=== PATIENT | female | born 1955 | race Caucasian/White ===

== ENCOUNTER 2019-04-17 21:05 | Emergency (ER) | payer OTHER, SELFPAY ==
[2019-04-17 21:36] VITALS: BP 179/87; PULSE 57; RESP 15; TEMP 36.3; O2SAT 99; BMI 29.2
[2019-04-17 21:41] VITALS: BMI 29.2
[2019-04-17 23:30] VITALS: BP 154/72; PULSE 58; RESP 16
--- NOTE | 2019-04-17 23:57 | ED_ITS ---
HPI - Wound/Laceration General Chief Complaint: Wound/Laceration Stated Complaint: CUT THUMB Time Seen by Provider: 04/17/19 21:06 Source: patient Mode of arrival: Ambulatory Limitations: no limitations History of Present Illness HPI narrative: 63-year-old female nonsmoker with noncontributory medical history presents with a chief complaint of a deep laceration to her left thumb suffered while working tonight. She was caring a cutting board and had a sharp knife sitting on it and she bumped into the door jam causing the knife to lacerate her thumb. There was significant bleeding on site and since then she has decreased ability to flex her left thumb. She denies any numbness, tingling or weakness. Her tetanus is not current and will need to be updated. Onset (ago): hour(s) Place: work Patient tetanus UTD: No Context: accidental Associated symptoms: pain and unable to move injured part Related Data Previous Rx's Medication Instructions Recorded cephalexin [Keflex] 500 mg PO QID 7 Days #28 cap 04/17/19 Allergies Allergy/AdvReac Type Severity Reaction Status Date / Time adhesive [ADHESIVE] Allergy Severe ITCH Unverified 10/30/17 11:58 codeine [CODEINE] Allergy Unknown NAUSEA Unverified 10/30/17 11:58 sulfamethoxazole AdvReac Unknown NAUSEA/VOMI Unverified 10/30/17 11:58 [From ] TING trimethoprim [From ] AdvReac Unknown NAUSEA/VOMI Unverified 10/30/17 11:58 TING Review of Systems Constitutional Constitutional: Denies chills, Denies fatigue, Denies fever(s), Denies frequent falls, Denies lethargy and Denies weakness Eyes Eyes: Denies change in vision, Denies eye discharge, Denies irritation and Denies loss of vision ENT Ears, Nose, Mouth, and Throat: Denies change in voice, Denies dizziness, Denies neck pain, Denies sore throat and Denies throat swelling Cardiovascular Cardiovascular: Denies chest pain, Denies irregular heart rhythm, Denies lightheadedness, Denies palpitations, Denies dyspnea, Denies dyspnea on exertion and Denies orthopnea Respiratory Respiratory: Denies cough, Denies dyspnea, Denies dyspnea on exertion and Denies wheezing Gastrointestinal Gastrointestinal: Denies abdominal pain, Denies change in bowel habits, Denies diarrhea, Denies nausea and Denies vomiting Genitourinary Genitourinary: Denies hematuria, Denies flank pain, Denies urinary incontinence and Denies urinary urgency Musculoskeletal Musculoskeletal: Denies back pain, Reports limited range of motion, Denies mus senthil weakness, Denies neck pain, Denies numbness and Denies tingling Integumentary/Breasts Skin/Breast: Denies pruritus, Denies erythema, Denies rash and Reports wounds Neurologic Neurologic: Denies behavioral changes, Denies confusion, Denies dizziness, Denies frequent falls, Denies loss of vision, Denies numbness, Denies tingling and Denies weakness Psychiatric Psychiatric: Denies anxiety, Denies behavioral changes, Denies confusion, Denies depression, Denies homicidal ideation and Denies suicidal ideation Endocrine Endocrine: Denies fatigue, Denies flushing and Denies palpitations Hematologic/Lymphatic Hematologic/Lymphatic: Denies easy bruising Allergic/Immunologic Allergic/Immunologic: Denies urticaria, Denies throat swelling and Denies wheezing PFSH Social History Smoking Status: Never smoker Social History Smoking Status: Never smoker Exam Narrative Exam Narrative: GEN: AOx3 and in mild distress EYES: Pupils are equal, round, and reactive to light and accommodation. Extraoccular muscles are intact bilaterally. There is no subconjunctival hemorrhage or exudate. CHEST: Lungs are clear to auscultation bilaterally and free of wheezes, rales, or rhonchi. Heart rate is regular rhythm, there are no murmurs, clicks, rubs, or gallops. There is no chest wall tenderness. ABD: Abdomen is soft and nontender. There is no guarding or rebound. Bowel sounds are normal in all 4 quadrants. There is no mass or organomegaly. EXT: Small active arterial bleeding noted at the laceration. 1.5 cm deep laceration on the flexor surface of left thumb overlying the interphalangeal joint. Bleeding quickly controlled, sensation intact, cap refill intact. Injury viewed in a bloodless field and full tendon laceration noted of the flexor tendon. SKIN: Warm, pink, and dry. No erythema or rash Initial Vital Signs Initial Vital Signs: Vital Signs Temperature 97.4 F L 04/17/19 21:36 Pulse Rate 57 L 04/17/19 21:36 Respiratory Rate 15 09/27/19 21:36 Blood Pressure 179/87 H 04/17/19 21:36 Pulse Oximetry 99 04/17/19 21:36 Procedures Laceration Repair Laceration 1: Side (If applicable): left Size (cm): 1.5 Description: linear Depth: involves tendon Local Anesthetic: lidocaine 1% and with bicarb Amount of anesthesia used (mL): 4 Pre-repair: wound explored and irrigated extensively Skin layer closed with: nylon Size (cm): 5-0 Number of sutures: 5 Technique: simple, interrupted Orthopedic Splinting/Casting Injury #1: Side: left Upper Extremity Immobilizer: thumb spica Post splinting neuro exam: intact Post splinting vascular exam: intact Placed by: Nursing Course Orders Ordered: Discontinued Medications Cefazolin Sodium (Keflex 250 Mg Prepack) 1 bottle MISC SEEINSTR ONE Stop: 04/18/19 00:01 Last Admin: 04/18/19 00:07 Dose: 1 bottle Documented by: KENL Diphtheria/Tetanus/Acell Pertussis (Adacel) 0.5 ml IM .ONCE ONE Stop: 04/18/19 00:03 Last Admin: 04/18/19 00:08 Dose: 0.5 ml Documented by: KENL Lidocaine/Sodium Bicarbonate (Buffered Lidocaine 10 Ml Syr) 10 ml INJ NOW ONE Stop: 04/17/19 23:24 Last Admin: 04/18/19 00:09 Dose: 10 ml Documented by: MMCFARL Consultations Consultation #1: call to ortho. Dr. Deshpande, recommends ABX, splint and follow up. Vital Signs Vital signs: Vital Signs - 8 hr 04/17/19 23:30 Pulse Rate 58 L Respiratory Rate 16 Blood Pressure [Right Arm] 154/72 H Discharge Plan Departure Patient Disposition: Home Clinical Impression: Laceration Flexor tendon laceration, hand, open wound Qualifiers: Encounter type: initial encounter Laterality: left Qualified Code(s): S66.822A - Laceration of other specified muscles, fascia and tendons at wrist and hand level, left hand, initial encounter Discharge Date/Time: 04/18/19 00:45 Activity Restrictions/Additional Instructions: *You have been diagnosed with [left thumb flexor tendon laceration] *What to do: *Take medications as directed *Follow up with [facility], call for an appointment. Let them know you were seen in the Emergency Department and that we ask that you be seen in follow up *Return to ER if you should have any new, worsening or concerning symptoms, such as [increasing pain, bleeding, fever over 101] Prescriptions: New cephalexin [Keflex] 500 mg capsule 500 mg PO QID 7 Days Qty: 28 RF: 0 Referrals: Brando Deshpande MD [Physician] -
[2019-04-18] MEDS: cephALEXin 250 MG PREPACK 1 BOTTLE MISC (00:07)
[2019-04-18] MEDS: TET,DIPH,PERTUSS(ACELL),VAC/PF 0.5 ML SYRINGE IM (00:08)
[2019-04-18] MEDS: LIDO 1%/SOD BICARB 8.4% (10ML) 10 ML SYRINGE INJ (00:09)
== END 2019-04-18 00:45 | disposition home or self-care (01) ==
PROVIDERS: Emergency Provider Emergency Medicine
DX: S66.822A Laceration of other specified muscles, fascia and tendons at wrist and hand level, left hand, initial encounter (principal); Z23 Encounter for immunization; Y99.0 Civilian activity done for income or pay
CPT/HCPCS: 12001; 90471; 99283; 90715

== ENCOUNTER → 2020-05-31 14:30 | Outpatient (CLI) | payer OTHER, SELFPAY ==
--- NOTE | 2020-05-31 14:34 | DI.RAD.S_ITS ---
PROCEDURE: XR CHEST 2V INDICATIONS: breast cancer r/o mets TECHNIQUE: 2 views of the chest were acquired. COMPARISON: [facility], , US BREAST RT CORE BIOPSY, 05/26/2020, 12:43. FINDINGS: Surgical changes and devices: None. Lungs and pleura: Lungs are clear. No pleural effusions or pneumothorax. Mediastinum: Mediastinal contours are normal. Heart size is normal. Bones and chest wall: No suspicious bony abnormalities. Soft tissues appear unremarkable. IMPRESSION: Normal for age, no evidence of metastatic disease related to reported breast carcinoma. Dictated by: Ruperto Allen M.D. on 05/31/2020 at 16:26 Approved by: Ruperto Allen M.D. on 05/31/2020 at 16:27
[2020-05-31 18:00] LABS: Add Manual Diff / Slide Review NO; Basophils Absolute Auto 100 /uL (0-100); Basophils Percent Auto 1.5 % (0-2); Eosinophils Absolute Auto 200 /uL (0-450); Eosinophils Percent Auto 2.9 % (2-4); Hematocrit 40.1 % (36-46); Hemoglobin 13.2 g/dL (12.0-16.0); Lymphocytes Absolute Auto 2700 /uL (1100-4500); Lymphocytes Percent Auto 43.7 % (25-40); Mean Corpuscular HGB Conc 32.9 % (30-36); Mean Corpuscular Volume 88.2 fL (80-100); Monocytes Absolute Auto 400 /uL (0-900); Monocytes Percent Auto 6.6 % (3-14); Neutrophils Absolute Auto 2800 /uL (1500-7000); Neutrophils Percent Auto 45.3 % (50-75); Platelet Count 317 X10^3/uL (150-400); Red Blood Cell Count 4.54 X10^6/uL (4.0-5.2); Red Cell Distribution Width 14.1 % (11.6-14.8); White Blood Cell Count 6.2 X10^3/uL (4.5-11.0)
[2020-05-31 18:01] LABS: Alanine Aminotransferase 27 IU/L (<35); Albumin Globulin Ratio 1.3 (1.0-2.8); Alkaline Phosphatase 53 U/L (38-126); Aspartate Aminotransferase 32 IU/L (14-36); BUN Creatinine Ratio 37.5 (6-22); Bilirubin Total 0.4 mg/dL (0.2-1.3); Blood Urea Nitrogen 21 mg/dL (7-17); Calcium 9.3 mg/dL (8.4-10.2); Carbon Dioxide 31 mmol/L (22-32); Chloride 102 mmol/L (98-107); Estimated Glomerular Filt Rate > 60.0 mL/min (>60); Globulin 3.2 g/dL (1.7-4.1); Glucose 88 mg/dL (80-110); HEMOLYSIS < 15 (0-50); Potassium 4.6 mmol/L (3.4-5.1); Sodium 135 mmol/L (137-145); Total Protein 7.2 g/dL (6.3-8.2)
== END ==
PROVIDERS: Referring Provider Specialist; Visit Provider Specialist
DX: C50.511 Malignant neoplasm of lower-outer quadrant of right female breast (principal)
CPT/HCPCS: 36415; 71046; 80053; 85025; 99214

== ENCOUNTER → 2020-06-18 10:13 | Outpatient (CLI) | payer OTHER, SELFPAY ==
[2020-06-18 11:25] LABS: COVID19 -Nasal RAPID Negative (Negative)
== END ==
PROVIDERS: Visit Provider Nurse Practitioner
DX: Z11.59 Encounter for screening for other viral diseases (principal)
CPT/HCPCS: 87635

== ENCOUNTER → 2020-06-20 09:43 | Outpatient (CLI) | payer OTHER, SELFPAY ==
--- NOTE | 2020-06-20 09:48 | DI.NM.S_ITS ---
PROCEDURE: NM SENTINEL NODE W IMAGING RADIOPHARMACEUTICAL: 0.5-1.0 mCi Millipore filtered Tc-99m sulfur colloid. INDICATIONS: breast cancer COMPARISON: None. TECHNIQUE: The area around the nipple was prepped and draped in a sterile fashion. Tc-99m sulfur colloid was injected intra-dermally in the outer edge of the areola in the right breast. Images were obtained subsequently. A body contour outline was obtained. FINDINGS: There is a single axillary lymph node tagged in the ipsilateral axilla, which is marked on the skin and the images for referring physician. IMPRESSION: Administration of radiotracer into the right breast periareolar region for intra-operative sentinel lymph node localization. Dictated by: Ruperto Allen M.D. on 06/20/2020 at 16:48 Approved by: Ruperto Allen M.D. on 06/20/2020 at 16:49
== END ==
PROVIDERS: Referring Provider Specialist; Visit Provider Specialist
DX: C50.511 Malignant neoplasm of lower-outer quadrant of right female breast (principal)
CPT/HCPCS: 78195; A9541

== ENCOUNTER 2020-06-20 09:51 | Day surgery (SDC) | payer OTHER, SELFPAY ==
[2020-06-20] VITALS (8 sets, daily range): BP systolic 120–164; BP diastolic 67–90; PULSE 58–70; RESP 10–16; TEMP 36.1–36.7; O2SAT 94–100; BMI 28.8
--- NOTE | 2020-06-20 | PATH_ITS ---
[place] Accession Number: [id number] . 01 Material submitted: . PART A: breast - RIGHT BREAST PART B: breast - RIGHT BREAST TISSUE PART C: lymph node - RIGHT AXILLARY SENTINEL NODE . 01 Clinical history: . SDC A: STITCH DAUGHERTY MEDIAL B: SUPERIOR MARGIN, STITCH DAUGHERTY TUMOR SIDE C: STITCH ADJACENT TO NODE . 02 Diagnosis: A. Right Breast, Lumpectomy: . CANCER CASE SUMMARY: . Invasive ductal carcinoma of the breast with the following features: . Procedure: Excision. Specimen laterality: Right. Tumor site: Inferior medial breast tissue, near the inframammary crease per operative report. Tumor size: 42 mm (slices 3-8 of 10). Additional dimensions: 18.0 x 16.0 mm Histologic type: Invasive carcinoma of no special type (ductal) by immunohistochemistry studies. Histologic grade: Tubular differentiation: Score 3/3 Nuclear pleomorphism: Score 3/3 Mitotic rate: Score 1/3 Overall grade: Grade 2 (Intermediate grade). Tumor focality: Single focus of invasive carcinoma. Ductal carcinoma in situ: Not identified. Tumor extension: Skin: Skin is present and uninvolved. Nipple: Not present. Skeletal muscle: No skeletal muscle identified; electrocautery artifact is obscuring. Invasive carcinoma margins: Negative for tumor. Distance from closest margin: Superior 2 mm; additional superior margin submitted as part B therefore final superior margin is greater than 10 mm. Anterior / skin: Greater than 10 mm Posterior: Greater than 10 mm Superior: Greater than 10 mm with part B (additional superior margin). Inferior: Greater than 10 mm Medial: Greater than 10 mm Lateral: Greater than 10 mm . Regional Lymph Nodes: One of two lymph nodes positive for metastatic carcinoma by histomorphologtic and immunohistochemistry studies. . Number of lymph nodes with macrometastasis: 0. Number of lymph nodes with micrometastasis: 1. Number of lymph nodes with isolated tumor cells: 0. Size of largest metastatic deposit: 2 mm. Extranodal extension: Present, largest focus 3 mm. Total number of lymph nodes examined: 2. Number of sentinel lymph nodes examined: 2. Treatmernt effect in the breast: No known presurgical therapy. Treatment effect in lymph nodes: Not applicable. . Lymphovascular invasion: Suspicious foci present. Dermal lymphovascular invasion: Not identified. . Pathologic staging (pTNM, AJCC 8th Ed): pT2 (sn)pN1mi . Ancillary studies: Breast biomarker testing performed on previous biopsy ([facility], [id number]; 05/26/2020): Estrogen receptor: Positive (3+, 100%). Progesterone receptor: Positive (3+, 100%). HER2: Negative (0 intensity, 0%). Ki-67: Intermediate (10-20%). . Microcalcifications: Present in nonneoplastic tissue. Additional findings: metallic biopsy marker in slice 4; changes consistent with previous instrumentation. . B. Right Breast Tissue, Superior Margin: Benign breast parenchyma. Negative for epithelial atypia or malignancy. Small region of microcalcifications present. Inked margins negative for tumor. . C. Right Axillary Lymph Node, Excision: One of two lymph nodes positive for a 2 mm focus of metastatic carcinoma (1/2). Extranodal extension multifocally present (largest focus 3 mm). MRV 06/24/2020 1552 Local . 02 Electronically signed: . Mariely Jimenes MD, Pathologist NPI- [id number] . 01 Gross description: . A. Received in formalin, labeled right breast tissue. Specimen: Right lumpectomy specimen. Weight: 63 grams. Measurement: 6.2 cm from anterior to posterior, 7.0 cm from medial to lateral and 5.0 cm from superior to inferior. Skin Ellipse: Present, measuring 4.8 x 3.2 cm. Wire: Absent. Margins: Posterior black, anterior skin, superior blue, inferior green, medial yellow and lateral orange. Sliced: Lateral to medial into 10 slices. Lesion: Firm, somewhat ill-defined lawton-white mass within slices 4-6. There is a silver metallic T-shaped biopsy marker within the mass in slice 4. Size: 2.8 x 1.8 x 1.6 cm. Distance to margins: 0.2 cm from the superior margin, 1.0 cm from the inferior margin, and greater than 1 cm from all remaining margins. Other: Remaining cut surfaces consist of approximately 75% lawton-yellow adipose tissue and 25% lawton-white fibrous tissue. The skin surface is grossly unremarkable. Fixation time: Approximately 48 hours. Sections: A1: slice 1, airport representative perpendicular sections of lateral margin. A2: airport representative slice 2. A3: slice 3, lateral to mass, to include superior margin and skin. A4: slice 4, mass in relation to superior margin and skin, to include site of biopsy clip. A5: slice 4, mass in relation to superior and posterior margins. A6: slice 4, mass in relation to inferior margin and skin. A7-A8: remainder of slice 4, inferior and posterior margins. A9-A10: slice 5, mass in relation to superior margins and skin. A11-A14: slice 6, mass in relation to superior margin and skin. A15: slice 7, medial to mass, to include superior margin. A16-A17: slices 8 and 9, to include superior margin. A18: slice 10, medial margin, airport representative perpendicular sections. (EA:[id number]) . B. Received in formalin, labeled right breast tissue superior margin, and consists of a 4.5 x 3.0 x 1.2 cm lawton-yellow fragment of fibroadipose tissue with a suture designated tumor side. The tumor side is inked blue and the opposing surface is inked black. The specimen is serially sectioned to reveal lawton-yellow lobulated cut surfaces. The specimen is entirely submitted in cassettes B1-B7. . C. Received in formalin, labeled right axilla sentinel node, and consists of a 3.5 x 2.5 x 1.5 cm lawton-yellow lobulated fragment of adipose tissue with a suture designated adjacent to sentinel node. Sectioning reveals two lymph nodes measuring 1.0 x 0.6 x 0.5 cm and 1.5 x 1.0 x 0.8 cm. The lymph nodes are bisected and entirely submitted in cassettes C1-C2. . Formalin fixation time: Approximately 24 hours. (EA:[id number]) /MRV 06/22/2020 1411 Local . 02 Microscopic: . Immunostains were performed to evaluate the cells of interest with the following results. A control stain shows appropriate reactivity. . RESULTS: Block A12: Smooth muscle actin: Negative in region of interest. . The absence of smooth muscle actin immunostaining at the focus of interest mitigates against the presence of skeletal muscle in this region. . E-cadherin: Strongly positive. . Immunopositivity with e-cadherin supports a ductal differentiation and mitigates against invasive lobular carcinoma. . . Blocks C1 and C2: RONNELL: Positive for metastatic carcinoma in one of two lymph nodes (1/2). . * This test was developed and its performance characteristics determined by [employer]. It has not been cleared or approved by the U.S. Food and Drug Administration. The FDA has determined that such clearance or approval is not necessary. This test is used for clinical purposes. It should not be regarded as investigational or for research. . 02 Pathologist provided ICD-10: C50.911 . 02 CPT . 516920, 649906, 246165, T61150, E98338 Performed at: [facility] [address] [id number] MD Rene Duran MD Phone: [phone] Performed at: 02 [facility] [address] [place] [id number] MD Alison Meza MD Phone: [phone]
[2020-06-20] MEDS: LACTATED RINGERS 1,000 ML 100 ML IV ×2 (11:34→13:47)
--- NOTE | 2020-06-20 12:18 | PM.PREOP ---
Pre-operative Note COVID-19 COVID-19 status: Negative Result date/Date tested (Pos, Neg/Pending): 06/17/20 Interval Note History & Physical reviewed/Exam performed by Physician: Yes Changes to H&P: No
[2020-06-20] MEDS: CEFAZOLIN 2 GM/100 ML FROZ.PIGGY IV (12:45)
--- NOTE | 2020-06-20 13:13 | SUR.OPER ---
Supine on padded OR bed, head on pillow, arms secured on padded arm boards at <90 degrees abduction, legs uncrossed, safety belt at thigh, tape over blanket over lower legs.
[2020-06-20] MEDS: BUPIVACAINE 0.5% (PF) VIAL 30 ML INJ (13:21)
--- NOTE | 2020-06-20 14:54 | P.OP_ITS ---
Operative Date/Time/Diagnoses Date of procedure: 06/20/20 Time of procedure: 14:54 Pre-op diagnosis: Breast cancer right breast inferior medial quadrant near inframammary fold Post-op diagnosis: same Procedure & Clinicians Procedure: Lumpectomy and sentinel node biopsy Same procedure as scheduled: Yes Indications: Patient with breast cancer for surgical treatment. Opted to undergo lumpectomy sentinel node biopsy and radiation therapy. Explained to her that whether she is recommended to have chemotherapy depends on information that will not be available until the pathology report is back Surgeon: Baron Gore Click Yes if Unassisted: Yes Anesthesia Type: General Operative Notes Findings: One small node in the axilla removed. Closure Type: primary Specimen(s): other (Breast tissue. [place] lymph node.) Prosthetic devices, grafts, tissues, transplants, or devices: None Estimated Blood Loss (mL): 10 Blood products transfused: none Procedure in detail: The patient was placed supine on the operating table and underwent general LMA anesthesia. She was prepped and draped in the usual fashion. The mass was palpable near the inframammary crease medially on the right. I fashioned an ellipse to take the skin off over it as it seemed somewhat superficial. I tried to place it such that the scar would be the inframammary fold. Ellipse was fashioned and take in into the subcu fat. Being careful to avoid the palpable masses I excised in normal subcutaneous fat down to muscle and included posterior fascia. The mass appeared to be completely excise the there was 1 area on the subcu fat superiorly that I took additional margin of period hemostasis was achieved with cautery. I advanced the breast tissue off the underlying muscle so that it would close and placed clips in the cavity. I then closed the breast tissue and subcu fat in 2 layers using 3-0 Vicryl. The skin was closed a running 4-0 Vicryl subcuticular stitch. Because the patient has an allergy to adhesive I decided to close 1 final layer of skin with a running 6 0 nylon suture. Attention was turned to the axilla. Using different instruments gloves etc. I made an incision in the skin over the inferior extent to the axilla and carried it into the axilla proper. Using the Navigator probe I was able to identify only 1 node within the axilla that had a raised count. The injection site had a count of about 400 and this node had a count instantaneous of about 125 with a 12nd count of almost 1200. There were no other nodes in the axilla or other tissue that had a count over 6. The axillary fascia was closed with interrupted 3 0 Vicryl. The subcu was closed with interrupted 3 0 Vicryl. The skin was closed with a running 4-0 Vicryl subcuticular stitch and a 5 a running nylon was used to meticulously close the skin is I could not use Steri-Strips. Dry dressings were applied over Xeroform gauze. An Arthur wrap was used to secure the dressings to the patient. No tape was placed on the patient during the procedure. The towels were held into place with towel clips. The patient was awakened extubated and taken to recovery area in good condition. There were no apparent complications. Complications: none Post-operative Condition: stable Disposition: PACU Plan for aftercare: Follow-up in the office.
--- NOTE | 2020-06-20 15:03 | SUR.PHASEI ---
Report given to Justine Stein RN and care assumed by her.
--- NOTE | 2020-06-20 15:09 | SUR.PHASEI ---
Assumed care for break relief. Pt very drowsy, dozing intermittently, arouses easily. Dr. Gore spoke with her.
--- NOTE | 2020-06-20 15:16 | SUR.PHASEI ---
1515 Stable, preparing to transfer. Drowsy and comfortable.
--- NOTE | 2020-06-20 15:26 | SUR.PHASEI ---
1515 to OPD, handoff to CHRIS Garcia. Dressing CDI, pt drowsy, talking, stable.
--- NOTE | 2020-06-20 16:42 | SUR.PHASEII ---
Notified pt that she left her reading classes in bed. Pt stated to donate to the department as she has several more at home and did not need them. Glasses and case were cleaned and placed in drawer and nurses station to be used as loaners.
== END 2020-06-20 16:16 | disposition home or self-care (01) ==
PROVIDERS: PCP Family Medicine; Referring Provider Specialist; Visit Provider Specialist
PROC: (CPT 19301; principal; 2020-06-20 12:45)
DX: C50.911 Malignant neoplasm of unspecified site of right female breast (principal); Z17.0 Estrogen receptor positive status [ER+]; C77.3 Secondary and unspecified malignant neoplasm of axilla and upper limb lymph nodes
CPT/HCPCS: 38525; 19301; 78195; 82962; A9541; J0690; J1100; J1885; J2250; J2405; J2704; J3010

== ENCOUNTER → 2020-07-12 15:15 | Outpatient (CLI) | payer OTHER, SELFPAY ==
--- NOTE | 2020-07-12 15:16 | DI.RAD.S_ITS ---
PROCEDURE: XR DEXA AXIAL SKELETON INDICATIONS: Baseline in postmenopausal woman, AI therapy for breast CA COMPARISON: None. FINDINGS: This blank DEXA report has been sent in error by the PACS system. The correct and complete report will be forthcoming in 1-2 days. Thank you for your patience and understanding. Dictated by: Ivy Figueroa MD, PhD on 07/12/2020 at 17:24 Approved by: Ivy Figueroa MD, PhD on 07/12/2020 at 17:25
== END ==
PROVIDERS: PCP Family Medicine; Referring Provider Internal Medicine; Visit Provider Internal Medicine
DX: C50.911 Malignant neoplasm of unspecified site of right female breast (principal); M85.852 Other specified disorders of bone density and structure, left thigh; Z78.0 Asymptomatic menopausal state; Z82.62 Family history of osteoporosis
CPT/HCPCS: 77080

== ENCOUNTER → 2020-08-04 11:09 | Outpatient (CLI) | payer OTHER, SELFPAY ==
--- NOTE | 2020-08-04 | DI.MRI.S_ITS ---
BREAST MRI OF BOTH BREASTS: 08/04/2020 CLINICAL: Malignant neoplasm of lower-inner quadrant of the right breast. Comparison is made to exams dated: 05/26/2020 ultrasound biopsy, 05/17/2020 ultrasound, 05/17/2020 mammogram, 04/18/2020 ultrasound, and 11/14/2018 mammogram - [facility]. Interpretation of this MRI was correlated with available mammograms and ultrasounds. Informed consent was obtained from the patient. Gadolinium contrast was injected. Axial T1 and pre and post contrast T1 images were obtained with a dedicated breast coil. Post processing was performed including 2D and 3D multiplanar reconstruction. Bilateral background breast enhancement is mild. PROCEDURE: MR BREAST BI WO/W CON INDICATIONS: Malignant neoplasm of lower-inner quadrant of righ TECHNIQUE: The patient was placed prone in a dedicated breast imaging coil. Precontrast axial STIR and 3D FLASH without fat saturation sequences were obtained. Both before and after bolus injection of contrast, sequential 1-minute axial 3D FLASH with fat saturation sequences for 3 time points, with subtraction images and maximum intensity projections (MIP's) generated. Delayed sagittal FLASH images with fat saturation were also obtained. Computer-aided detection, including computer algorithm analysis of MRI image data for lesion detection and characterization, pharmacokinetic analysis, with further physician review for interpretation, was performed. COMPARISON: None. FINDINGS: Image quality: Excellent. There is mild background parenchymal enhancement. Right breast: The right breast has a 3.6 x 2.3 x 1.8 centimeter seroma in the 4 o'clock position. The seroma abuts the chest wall however there is no associated chest wall enhancement to suggest chest wall or pectoralis muscle invasion. No other focus of abnormal enhancement or mass is identified. Postoperative changes of lymph node dissection are also seen. There are an increased number of lymph nodes in the right axilla compared to the left, 1 lymph node is enlarged measuring 1.1 x 1.9 centimeters. The remaining lymph nodes measure within normal size limits by ratio criteria, the largest measuring 8 millimeters in short axis. Left breast: The left breast demonstrates no abnormal focus, mass, or abnormal enhancement. Normal-appearing lymph nodes are seen in the left axilla. IMPRESSION: KNOWN BIOPSY PROVEN MALIGNANCY 1. Postoperative changes of right breast lumpectomy and lymph node dissection with no associated foci of abnormal enhancement or mass. No evidence of chest wall invasion or adenopathy. 2. Increased number of lymph nodes in the right axilla compared to the left, 1 lymph node is enlarged measuring 1.1 x 1.9 centimeters. The remaining lymph nodes measure within normal size limits by ratio criteria, the largest measuring 8 millimeters in short axis. This exam was interpreted at Station ID: [id number]. Electronically Signed By: Mckay Ring acr/:08/04/2020 13:02:07 ACR BI-RADS Category 6: Known biopsy proven malignancy [id number]
== END ==
PROVIDERS: PCP Family Medicine; Referring Provider Family Medicine; Visit Provider Radiology Radiation Oncology
DX: C50.311 Malignant neoplasm of lower-inner quadrant of right female breast (principal); Z17.0 Estrogen receptor positive status [ER+]
CPT/HCPCS: 77049

== ENCOUNTER → 2024-06-29 08:19 | Outpatient (CLI) | payer MEDICARE, OTHER, SELFPAY ==
--- NOTE | 2024-06-29 08:21 | DI.CT.S_ITS ---
PROCEDURE: CT LE RT WO CON INDICATIONS: PRESURGERY PLANNING, RT KNEE TECHNIQUE: Noncontrast 1-1.5 mm axial sections acquired from the mid-patella to the proximal tibia, with coronal and sagittal reformats. COMPARISON: None. FINDINGS: Image quality: Excellent. Bones: Status post right total knee arthroplasty, in near anatomic alignment. No hardware complication. Soft tissues: Large knee effusion. No popliteal cyst. IMPRESSION: Status post right total knee arthroplasty, in near anatomic alignment. No hardware complication. Large knee effusion. Dictated by: Alissa Sims M.D. on 06/29/2024 at 15:32 Approved by: Alissa Sims M.D. on 06/29/2024 at 15:36
== END ==
LOC: CT 08:20
PROVIDERS: Referring Provider Orthopaedic Surgery Adult Reconstructive Orthopaedic Surgery; Visit Provider Orthopaedic Surgery Adult Reconstructive Orthopaedic Surgery
DX: M25.461 Effusion, right knee (principal); Z96.651 Presence of right artificial knee joint
CPT/HCPCS: 73700

== ENCOUNTER → 2024-07-01 10:21 | Outpatient (CLI) | payer MEDICARE, OTHER, SELFPAY ==
[2024-07-01 10:59] LABS: Add Manual Diff / Slide Review NO; Basophils Absolute Auto 100 /uL (0-100); Basophils Percent Auto 1.8 % (0-2); Eosinophils Absolute Auto 100 /uL (0-450); Eosinophils Percent Auto 2.5 % (2-4); Hemoglobin 13.2 g/dL (12.0-16.0); Lymphocytes Absolute Auto 1700 /uL (1100-4500); Lymphocytes Percent Auto 32.7 % (25-40); Mean Corpuscular HGB Conc 33.1 % (30-36); Mean Corpuscular Hemoglobin 29.1 PG (26-34); Monocytes Absolute Auto 400 /uL (0-900); Monocytes Percent Auto 7.1 % (3-14); Neutrophils Absolute Auto 2900 /uL (1500-7000); Neutrophils Percent Auto 55.9 % (50-75); Platelet Count 293 X10^3/uL (150-400); Red Blood Cell Count 4.55 X10^6/uL (4.0-5.2); Red Cell Distribution Width 14.6 % (11.6-14.8); White Blood Cell Count 5.2 X10^3/uL (4.5-11.0)
--- NOTE | 2024-07-01 11:00 | EKG_ITS ---
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
[2024-07-01 11:17] LABS: Hemoglobin A1C% w Est Avg Glu 5.4 % (4.0-6.0)
[2024-07-01 11:24] LABS: Blood Urea Nitrogen 22 mg/dL (7-17); C-Reactive Protein Quant < 0.5 mg/dL (<1.0); Calcium 9.1 mg/dL (8.4-10.2); Carbon Dioxide 27 mmol/L (22-32); Chloride 103 mmol/L (98-107); Estimated Glomerular Filt Rate > 60 mL/min (>60); Glucose 100 mg/dL (80-110); HEMOLYSIS < 15 (0-50); Potassium 4.3 mmol/L (3.4-5.1); Sodium 135 mmol/L (137-145)
[2024-07-01 11:32] LABS: Prealbumin 20.5 mg/dL (17.6-36.0)
[2024-07-01 11:41] LABS: Vitamin D 25 Hydroxy (D3) 27.1 ng/mL (30.0-100.0)
[2024-07-01 12:47] LABS: Erythrocyte Sedimentation Rate 12 MM/HR (0-20)
[2024-07-02 03:38] LABS: Albumin 3.8 g/dL (3.5-5.0)
== END ==
PROVIDERS: Referring Provider Orthopaedic Surgery Adult Reconstructive Orthopaedic Surgery; Visit Provider Orthopaedic Surgery Adult Reconstructive Orthopaedic Surgery
DX: Z01.818 Encounter for other preprocedural examination (principal); R73.9 Hyperglycemia, unspecified; E55.9 Vitamin D deficiency, unspecified; R77.0 Abnormality of albumin; Z01.812 Encounter for preprocedural laboratory examination; R70.0 Elevated erythrocyte sedimentation rate; R79.82 Elevated C-reactive protein (CRP)
CPT/HCPCS: 36415; 80048; 82040; 82306; 83036; 84134; 85025; 85651; 86140; 93005; 93010

== ENCOUNTER → 2024-08-19 08:37 | Outpatient (CLI) | payer MEDICARE, OTHER, SELFPAY ==
[2024-08-19 09:28] LABS: Vitamin D 25 Hydroxy (D3) 39.9 ng/mL (30.0-100.0)
== END ==
PROVIDERS: PCP Family Medicine; Referring Provider Family Medicine; Visit Provider Family Medicine
DX: E55.9 Vitamin D deficiency, unspecified (principal)
CPT/HCPCS: 36415; 82306

== ENCOUNTER 2024-09-14 08:53 | Inpatient (IN) | payer MEDICARE, OTHER, SELFPAY ==
[2024-09-03 13:01] VITALS: BMI 31.6
[2024-09-14] VITALS (12 sets, daily range): BP systolic 122–153; BP diastolic 69–89; PULSE 53–90; RESP 10–19; TEMP 36.2–36.7; O2SAT 94–98; BMI 31.1
--- NOTE | 2024-09-14 | DI.RAD.S_ITS ---
PROCEDURE: XR KNEE RT 1TO2V INDICATIONS: POST OP RIGHT TOTAL KNEE TECHNIQUE: 2 view(s) of the knee acquired. COMPARISON: [facility] [place], XR KNEE ARTHRITIC SERIES RT, 10/01/2023, 11:30. FINDINGS: Bones: Patient is status post knee joint arthroplasty. Hardware components are in expected positions. Visualized bony structures are intact. Soft tissues: Overlying postoperative changes are noted. IMPRESSION: Expected post-operative appearance of a knee arthroplasty. Dictated by: Jazzmine Olsen M.D. on 09/14/2024 at 15:27 Approved by: Jazzmine Olsen M.D. on 09/14/2024 at 15:28
[2024-09-14] MEDS: LACTATED RINGERS 1,000 ML 42 ML IV (09:31)
[2024-09-14] MEDS: ACETAMINOPHEN 325 MG TABLET 975 MG PO (09:32)
--- NOTE | 2024-09-14 11:04 | PM.PREOP ---
Pre-operative Note Interval Note History & Physical reviewed/Exam performed by Physician: Yes Changes to H&P: No
[2024-09-14] MEDS: CEFAZOLIN 2 GM/100 ML PREMIX 100 ML IV ×2 (11:21→19:44)
[2024-09-14] MEDS: ROPIVACAINE/EPI/CLONIDINE/KET 50 ML SYRINGE INJ (12:05)
[2024-09-14] MEDS: TRANEXAMIC ACID 1,000 MG VIAL 1000 MG INJ (12:08)
--- NOTE | 2024-09-14 12:28 | P.OP_ITS ---
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 Post-op diagnosis: same Procedure & Clinicians Procedure: Revision right total knee arthroplasty involving polyethylene exchange with retention of tibial and femoral components Same procedure as scheduled: Yes Surgeon: Anoop Sears Consulting Systems Engineer: Rosi Willams Anesthesia Type: Spinal, Sedation and Local Operative Notes Estimated Blood Loss (mL): 50 Procedure in detail: Polyethylene exchange of prior right total knee arthroplasty with insertion of anterior constrained polyethylene insert for global knee instability following prior right total knee arthroplasty Implants: * Size 20 anterior constrained NextGen polyethylene insert * Retained Size F NextGen femur * Retained size 5 NextGen tibia Procedure Summary: This 68-year-old female patient had a right total knee arthroplasty performed approximately 15 years ago in our facility. The operative note from that time states that she had severe valgus arthritis and a lateral release was required during her case. A cruciate retaining construct was implanted. She presented to my clinic with global knee instability with gross hyperextension, severe varus and valgus laxity in extension, and flexion instability. Her knee position prior to incision on the operating table is shown in the photograph below. I had made extensive preparations for today's surgery which included contingency plans for removal of both the femoral and tibial components with insertion of either a CCK constrained revision total knee arthroplasty or a RHK hinged knee. All of these instruments were available on backup during today's procedure. Because a cruciate retaining insert had been used previously attempts to improve stability by upsizing the polyethylene necessitated use of an anterior constrained insert from the [employer] system. I arranged to have these brought in for today's procedure. After trialing with the largest insert available, which is a 20 mm, I found that her hyperextension had resolved as had her varus and valgus laxity in extension. Her flexion instability had been her least severe symptom during my examination under anesthesia and passive knee flexion was not limited by flexion gap tightness after the insertion of the 20 mm insert. I therefore elected to proceed with a polyethylene exchange and retain the prior tibial and femoral components. I had obtained a CT scan to evaluate for possible femoral or tibial component loosening and had not seen any evidence therein. Additionally I did not note any loosening while manually testing the implants during today's procedure. I had aspirated the knee and sent it for Synovasure which had returned negative but I did also send a culture from the retropatellar scar during the procedure today. A comparison photograph following final implant insertion as shown below demonstrating the improvement in hyperextension after polyethylene exchange. Procedure in Detail: This patient was seen preoperatively and evaluated for knee instability. The risks and benefits of continued nonoperative management versus operative management were discussed at length and all of the patient?s questions were answered. Additional educational materials providing further details beyond our discussion in clinic were provided via a publicly available patient education video which included the incidence of medical complications associated with total knee arthroplasty, reasons for revision following total knee arthroplasty, and patient satisfaction rates following total knee arthroplasty. That video can be accessed at [email or web address] . With this understanding of the risks inherent to the procedure, the patient elected to move forward with operative management. Following preoperative optimization, the patient was scheduled for surgery. The patient was met in the preoperative holding area the day of the procedure and all questions were answered. The patient?s nares were swabbed with betadine in order to decolonize them from MRSA. Informed consent was signed and the laterality limb was marked with indelible ink.? The patient was brought back to the operating room where anesthesia was induced. The patient was transferred to the operating table and all bony prominences were padded. The operative site was prepped and draped in the usual sterile fashion. A second prep stick was utilized following drape placement. The incision was marked corresponding to the medial aspect of the tibial tubercle and the patella. Ioban was wrapped circumferentially around the knee. Prior to incision, tranexamic acid and cefazolin were administered. Templating images were displayed. A timeout procedure was performed verifying the patient?s identity, medical comorbidities, allergies, relevant medications, anesthesia type and the surgical plan. All present were in agreement. The assistance of a physician emergency medicine physician assistant was required for positioning, room setup, soft tissue retraction and wound closure. Without this assistance, the procedure would have been significantly more challenging and time consuming.?? The tourniquet was inflated prior to incision. I made an anterior incision over the knee, dissected through the subcutaneous tissues and identified the lateral border of the VMO. Medial and lateral soft tissue flaps were developed. I excised the old scar in the process of making the incision. I performed a medial parapatellar arthrotomy and retained as much scar as possible in order to maximize stability should I retained the previously implanted components. Removed scar from behind the patella and sent that for culture. I hyperflexed and subluxated the tibial component and removed the polyethylene insert using an osteotome. I inserted a trial 20 mm anterior constrained polyethylene insert. This was quite challenging as it was designed to implant from the top straight down and I had challenges achieving this orientation. I ended up using a mallet to impact it into place in approximately 45? of extension after getting the lateral portion of the insert underneath the femoral component. Trialing indicated that all parameters were drastically improved. She no longer hyperextended. She no longer had varus or valgus instability in terminal extension. Her flexion instability was the least severe of her symptoms coming into surgery, potentially indicating that this represented late PCL rupture, and this was improved as well. Her flexion gap was not too tight as to limit passive knee flexion. I therefore elected to insert the definitive size 20 anterior stabilized polyethylene insert and retain the well-fixed femoral and tibial components. I inspected the knee inspected for excess cement and any residual bleeding. Once hemostasis was achieved I inserted the final polyethylene and ensured appropriate engagement of the dovetail locking mechanism.?? The arthrotomy was closed with absorbable interrupted suture ensuring that this extended to the top of the arthrotomy. This was backed up with running barbed suture throughout the arthrotomy. The skin was closed with 2-0 and 3-0 sutures. Surgical glue was applied and a soft dressing was placed.?The sponge, instrument and needle counts were reported as being correct at the end of the case.??No obvious complications occurred. The patient was transferred from the operating table back to a stretcher. The patient emerged from anesthesia without difficulty and was taken to the PACU in a stable condition.? Plan for aftercare: * Weightbearing as tolerated * Mobilization as soon as the patient has recovered from anesthesia. If physical therapists are unavailable at the time the patient is ready to ambulate, then nursing staff should help patient ambulate * Aspirin 81 twice per day for DVT prophylaxis * Cefadroxil 500 BID for 10 days for PJI prophylaxis * Multimodal pain regimen with no IV opioids ordered * Anticipate discharge home later today * Follow up at [facility] in 2 weeks * Detailed postoperative instructions available at [email or web address]
[2024-09-14] MEDS: ACETAMINOPHEN 325 MG TABLET 650 MG PO ×2 (16:17→20:55)
[2024-09-14] MEDS: IBUPROFEN 600 MG TABLET PO ×2 (16:18→22:59)
[2024-09-14] MEDS: ONDANSETRON 4 MG/2 ML INJ IV (16:18)
--- NOTE | 2024-09-14 16:27 | PT.IIE ---
Current Diagnoses Instability of internal right knee prosthesis, initial encounter (09/14/24) Surgery Performed Operation Date: 09/14/24 10:45 Actual Procedures p Total Knee Arthroplasty Revision(Right) - Anoop Sears MD Surgical History (Last Updated 09/03/24 @ 13:23 by Amena Ruiz, RN) History of carpal tunnel release History of lumpectomy of right breast (06/20/20) History of total left knee replacement (2014) History of total right knee replacement (2005) Hx of thumb surgery Hx of tubal ligation Medical History (Last Updated 09/03/24 @ 13:23 by Amena Ruiz, RN) Ankle fracture, right Breast cancer, right Physical Therapy Inpatient Evaluation/Re-Eval M1 PT/OT-IP Prior Functional Status Start: 09/14/24 15:57 Freq: NEEDED Status: Active Protocol: Document 09/14/24 16:02 MB (Rec: 09/14/24 16:26 MB [id number]) Medical Review Prior Functional Status Medical History Reviewed Yes Diet/Fluid Consistency Regular Communication WNLs Mobility and Gait I, 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 1 step and no rail to enter Home Environment High Toilet,Walk in Shower Home Equipment Front Wheel Walker,Straight Cane,Hand Held Shower,Grab Bars In Shower Additional Social History Comment Pt works She has an adjustable bed M2 PT-IP Current Condition Start: 09/14/24 15:57 Freq: NEEDED Status: Active Protocol: Document 09/14/24 16:02 MB (Rec: 09/14/24 16:26 MB [id number]) Physical Therapy Current Condition Current Condition Evaluation Date 09/14/24 Treatment Diagnosis Right total knee revision M3 PT-IP Subjective Start: 09/14/24 15:57 Freq: NEEDED Status: Active Protocol: Document 09/14/24 16:02 MB (Rec: 09/14/24 16:26 MB [id number]) Subjective Physical Therapy Visit Type Type Initial Evaluation Visit Start Time 16:02 Visit Stop Time 16:18 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 Therapy Pain Assessment Pain When Pain Assessed At Rest Pain Present Pain Present Denied Pain M4 PT-IP Mobility and Gait Start: 09/14/24 15:57 Freq: NEEDED Status: Active Protocol: Document 09/14/24 16:02 MB (Rec: 09/14/24 16:26 MB [id number]) PT-Bed Mobility Assessment Rolling Type of Rolling Roll to Right,Roll to Left Level of Assist Standby Assistance Supine to Sit Supine to Sit Standby Assistance,Bedrails Sit to Supine Sit to Supine Standby Assistance,Bedrails Scooting Scooting to Edge of Bed Standby Assistance Scooting Up and Down in Bed Standby Assistance PT-Transfer Assessment Sit to and From Stand Sit to and from Stand Contact Guard Assistance,1 Person Assistance,Use of Upper Extremities Equipment Transfer Assistive Device Gait Belt,Front Wheeled Walker Orthotic/Prosthetic Devices or Brace: No Comments Mobility Comments Pt begins to dry heave and needs to sit back down and lie down once standing. PT cannot get a good orthostatic reading d/t pt holding emesis bag and flexed over heaving. BP is high in RUE: 151/91, 75 in supine and then 176/84, 76 Gait Assessment Comments Gait Comments Pt cannot tolerate getting OOB to chair or gait this afternoon PT-Balance Assessment Sitting Balance and Reactions Static Sitting Balance Ability Good Dynamic Sitting Balance Ability Good Standing Balance and Reactions Static Standing Balance Ability Good Dynamic Standing Balance Ability Good Device Used RW M5 PT-IP Objective Assessments Start: 09/14/24 15:57 Freq: NEEDED Status: Active Protocol: Document 09/14/24 16:02 MB (Rec: 09/14/24 16:26 MB [id number]) Orientation Orientation/Cognition Level of Alertness Alert Language Function Ability No Deficits Noted Safety Awareness Understands Safety Issues Memory Description No Deficits Noted Gross Range of Motion Upper Extremity ROM Impairments Defer to OT Lower Extremity ROM Assessment Right Impaired Strength Comments Strength Comments PT does not have a chance to formally assess ROM or MMT given pt's symptoms but overall, functional during bed mobility and standing today Sensation Assessment Comments Sensation Comments NT M6 PT-IP Treatment Start: 09/14/24 15:57 Freq: NEEDED Status: Active Protocol: Document 09/14/24 16:02 MB (Rec: 09/14/24 16:26 MB [id number]) Physical Therapy Treatment Education Education Provided Weight Bearing Status M7 PT-IP Assessment and Plan Start: 09/14/24 15:57 Freq: NEEDED Status: Active Protocol: Document 09/14/24 16:02 MB (Rec: 09/14/24 16:26 MB [id number]) PT Summary Assessment and Plan Potential Rehabilitation Potential Fair Status of Condition at Evaluation Evolving Summary Impairments Balance,Coordination,Transfers ,Gait,Activity Tolerance Progress Towards Goals Slow Progress due to Activity Tolerance Assessment Summary Pt is a 68 y/o female s/p right TKA revision. She has nausea and dizziness in supine before mobility and her BP is high. Upon standing, she begins to dry heave and PT provides emesis bag and nsg arrives. She returns to sitting EOB and back to supine . She cannot tolerate further mobility assessment this afternoon. Goals Bed Mobility Goal Independent Transfer Goal Independent,Front Wheeled Walker Gait Goal Independent,Front Wheel Walker Gait Distance 150 Other Goals Pt will ascend and descend 1 step with RW and mod I to allow safe home entrance. Days to Meet Goals 2 Frequency of Treatment Other frequency x1, 1-2x/day Treatment Plan Physical Therapy Treatment Plan Bed Mobility Training,Transfer Training,Gait Training, Therapeutic Exercise,Balance Retraining,Post Op Education, Discharge Planning,Hot or Cold Pack,Neuromuscular Re-ed, Coordination Retraining,Manual Therapy Weight Bearing Status Weight Bearing Status Weight Bear as Tolerated Recommendations To Nursing Amount of Assist Needed 1 Person Assist Discharge Recommendations PT Discharge Recommendations Home with Assistance, Outpatient PT Transportation Needs at Discharge Private Vehicle
[2024-09-14] MEDS: LACTATED RINGERS 1,000 ML 100 ML IV (20:51)
[2024-09-14] MEDS: ASPIRIN EC 81 MG TABLET PO (20:55)
[2024-09-14] MEDS: DOCUSATE 100 MG CAPSULE PO (20:55)
[2024-09-15] MEDS: CEFAZOLIN 2 GM/100 ML PREMIX 100 ML IV (03:54)
[2024-09-15] MEDS: ACETAMINOPHEN 325 MG TABLET 650 MG PO ×2 (03:54→09:06)
[2024-09-15] MEDS: IBUPROFEN 600 MG TABLET PO ×2 (04:24→10:30)
[2024-09-15 05:48] LABS: Hematocrit 36.8 % (36-46); Hemoglobin 12.4 g/dL (12.0-16.0)
[2024-09-15] MEDS: SODIUM CHLORIDE 0.9% FLUSH 10 ML IV ×2 (06:21→09:07)
[2024-09-15 08:44] VITALS: BP 127/69; PULSE 68; RESP 19; TEMP 37; O2SAT 99
[2024-09-15] MEDS: DOCUSATE 100 MG CAPSULE PO (09:06)
[2024-09-15] MEDS: ASPIRIN EC 81 MG TABLET PO (09:06)
[2024-09-15] MEDS: LETROZOLE 2.5 MG TABLET PO (09:10)
--- NOTE | 2024-09-15 09:20 | PT.IPTN ---
Current Diagnoses Instability of internal right knee prosthesis, initial encounter (09/14/24) Surgery Performed Operation Date: 09/14/24 10:45 Actual Procedures p Total Knee Arthroplasty Revision(Right) - Anoop Sears MD Physical Therapy Treatment Note M2 PT-IP Current Condition Start: 09/14/24 15:57 Freq: NEEDED Status: Discharge Protocol: Document 09/14/24 16:02 MB (Rec: 09/14/24 16:26 MB [id number]) Physical Therapy Current Condition Current Condition Evaluation Date 09/14/24 Treatment Diagnosis Right total knee revision M3 PT-IP Subjective Start: 09/14/24 15:57 Freq: NEEDED Status: Discharge Protocol: Document 09/15/24 09:20 AB (Rec: 09/15/24 13:10 AB [id number]) Subjective Physical Therapy Visit Type Type Treatment Note Visit Start Time 09:20 Visit Stop Time 09:35 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 Physical Therapy Visit Comments Patient Comments agreeable to do PT M4 PT-IP Mobility and Gait Start: 09/14/24 15:57 Freq: NEEDED Status: Discharge Protocol: Document 09/15/24 09:20 AB (Rec: 09/15/24 13:10 AB [id number]) PT-Bed Mobility Assessment Supine to Sit Supine to Sit Standby Assistance Sit to Supine Sit to Supine Standby Assistance PT-Transfer Assessment Sit to and From Stand Sit to and from Stand Standby Assistance Equipment Transfer Assistive Device Gait Belt,Front Wheeled Walker Orthotic/Prosthetic Devices or Brace: No Transfers Transfer Destination Toilet Transfer Technique ambulated Transfer Ability Level of Assist Standby Assistance,1 Person Assistance,Use of Upper Extremities Comments Mobility Comments pt in bed and agreed to do PT. supine to sit SBA. sit to stand SBA. pt can be impulsive. pt ambulated ~ 125 ft using FWW SBA occasionally cues for safety. pt completed up/down platform step using fWW SBA. pt ambulate back to her room using FWW and requested to use the toilet. pt ambulated to the toilet. able to complete toileting needs. pt went back to bed SBA for safety. positioned pt in bed. call light and table placed within reach. pt without any concerns. Gait Assessment Gait Gait Assistance Required: Standby Assistance,1 Person Assist Distance (Feet) 125 Able to Maintain Weight Bearing Status Yes During Gait Assistive Devices Assistive Device Gait Belt,Front Wheeled Walker Orthotic/Prosthetic Devices or Brace: No Gait Deviations General Gait Pattern Antalgic Factors Limiting Gait Function Factors Limiting Gait Function Decreased Activity Tolerance, Decreased Strength,Pain,Poor Balance Stair Climbing Assessment Evaluation Level of Assist On Stairs Standby Assistance Devices Stair Climbing Assistive Devices Front Wheel Walker Technique/Endurance Stair Climbing Direction Ascend and Descend Stair Climbing Technique Step to Step Number of Steps Climbed 1 Stair Climbing Set # Repetitions (reps) 1 M5 PT-IP Objective Assessments Start: 09/14/24 15:57 Freq: NEEDED Status: Discharge Protocol: Document 09/14/24 16:02 MB (Rec: 09/14/24 16:26 MB [id number]) Orientation Orientation/Cognition Level of Alertness Alert Language Function Ability No Deficits Noted Safety Awareness Understands Safety Issues Memory Description No Deficits Noted Gross Range of Motion Upper Extremity ROM Impairments Defer to OT Lower Extremity ROM Assessment Right Impaired Strength Comments Strength Comments PT does not have a chance to formally assess ROM or MMT given pt's symptoms but overall, functional during bed mobility and standing today Sensation Assessment Comments Sensation Comments NT M6 PT-IP Treatment Start: 09/14/24 15:57 Freq: NEEDED Status: Discharge Protocol: Document 09/15/24 09:20 AB (Rec: 09/15/24 13:10 AB [id number]) Physical Therapy Treatment Education Education Provided Safety M7 PT-IP Assessment and Plan Start: 09/14/24 15:57 Freq: NEEDED Status: Discharge Protocol: Document 09/15/24 09:20 AB (Rec: 09/15/24 13:10 AB [id number]) PT Summary Assessment and Plan Potential Rehabilitation Potential Fair Summary Impairments Pain,ROM,Strength,Balance,Bed Mobility,Transfers,Gait, Activity Tolerance Progress Towards Goals Progressing Toward Goals Assessment Summary pt progressing well with mobility. pt requiring SBA using FWW and plans to go home today. Goals Bed Mobility Goal Independent Transfer Goal Independent,Front Wheeled Walker Gait Goal Independent,Front Wheel Walker Gait Distance 150 Other Goals Pt will ascend and descend 1 step with RW and mod I to allow safe home entrance. Days to Meet Goals 2 Frequency of Treatment Frequency Of Treatment Twice a Day Treatment Plan Physical Therapy Treatment Plan Bed Mobility Training,Transfer Training,Gait Training, Therapeutic Exercise,Balance Retraining,Post Op Education, Discharge Planning,Hot or Cold Pack,Neuromuscular Re-ed, Coordination Retraining,Manual Therapy Weight Bearing Status Weight Bearing Status Weight Bear as Tolerated Recommendations To Nursing Amount of Assist Needed 1 Person Assist Discharge Recommendations PT Discharge Recommendations Home with Assistance, Outpatient PT Transportation Needs at Discharge Private Vehicle
--- NOTE | 2024-09-15 11:07 | P.DS_ITS ---
History of Present Illness History of Present Illness Chief complaint: Right Total Knee Arthroplasty Revision Narrative: Naz is a pleasant 68-year-old female who is POD#1 s/p right total knee arthroplasty polyethylene exchange by Dr. Sears. This morning patient is sitting up comfortably in bed. She reports minimal pain. She has been urinating well without issue. She has been ambulating with her walker without issue. Worked with Physical therapy this morning and made good progress. She states she feels comfortable discharging to this morning. She has post-op pain medication at home already. She has a walker and cane at home. She has an ice machine at home. Her sister plans to pick her up from the hospital and will be staying with her for the next week. She has postop physical therapy scheduled at [facility]. Denies fever, chills, chest pain, SOB, nausea, vomiting. 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 Post-op diagnosis: same Procedure & Clinicians Procedure: Revision right total knee arthroplasty involving polyethylene exchange with retention of tibial and femoral components Same procedure as scheduled: Yes Surgeon: Anoop Sears Art History Instructor: Rosi Willams Anesthesia Type: Spinal, Sedation and Local Operative Notes Estimated Blood Loss (mL): 50 Procedure in detail: Polyethylene exchange of prior right total knee arthroplasty with insertion of anterior constrained polyethylene insert for global knee instability following prior right total knee arthroplasty Implants: * Size 20 anterior constrained NextGen polyethylene insert * Retained Size F NextGen femur * Retained size 5 NextGen tibia Discharge Providers Provider Date of admission: 09/14/24 08:53 Discharge Date: 09/15/24 Primary care physician: Aggie Beauchamp DO Consults: 09/09/24 06:00 Consult to Anesthesiology Routine Comment: Consulting Provider: Anesthesiologist Reason for consultation: Regional block for post operative pain control Has provider been notified: No 09/14/24 13:34 Consult to Discharge Planning Routine Comment: Consult to Physical Therapy Evaluate & Treat Comment: Physician Instructions: postop TKA protocol Discharge provider: Gail Olsen PA-C Summary Hospital Course Discharge Diagnosis: stable s/p right total knee arthroplasty polyethylene exchange Hospital Course: Uncomplicated hospital course Exam Vital Signs (past 8 hours): - 09/15/24 08:44 Temperature 98.6 F Pulse Rate 68 Respiratory Rate 19 Blood Pressure 127/69 Pulse Oximetry 99 Oxygen Flow Rate 0 Oxygen Delivery Method Room Air Oxygen Flow Rate 0 Narrative Exam Narrative: Patient lying comfortably in bed during our interview today. No acute distress. AOx3. Grossly normal alignment of the RLE. 5/5 strength with DF, PF, EHL bilaterally. Gross sensation intact throughout bilateral lower extremities. Calves soft and non-tender bilaterally. SCDs are on and functioning. Brisk capillary refill, pulses intact. Post-surgical Aquacel dressing clean, dry and intact over the right knee without drainage. Objective Labs 09/15/24 05:25 Labs: Laboratory Results - last 24 hr 09/15/24 05:25 Hgb 12.4 Hct 36.8 PFSH Medical History (Updated 09/03/24 @ 13:23 by Amena Ruiz RN) Breast cancer, right Ankle fracture, right Surgical History (Updated 09/03/24 @ 13:23 by Amena Ruiz RN) History of lumpectomy of right breast (06/20/20) Hx of thumb surgery History of carpal tunnel release Hx of tubal ligation History of total right knee replacement (2005) History of total left knee replacement (2014) Family History Sister Breast cancer Social History marital status: unknown household members: spouse and none occupational status: employed Smoking Status: Never smoker alcohol intake: current substance use type: does not use Discharge Assessment & Plan Assessment and Plan Assessment: stable s/p right total knee arthroplasty polyethylene exchange Plan of Treatment: 1) Plan to discharge to home today with sister. 2) Continue multimodal pain management with ice to the knee for additional pain control. She has postop pain medication at home already. 3) ASA b.i.d. for DVT prophylaxis. 4) Start outpatient physical therapy to work on range of motion and mobility. Weightbearing as tolerated. 5) Keep dressing intact, clean, dry until 2 week postop appointment. No soaking the incision site in pools or tubs. No topical ointments or creams to the incision site. 6) Follow up at [facility] in 2 weeks for a postop appointment and wound check. 7) Cefadroxil 500 BID for 10 days for PJI prophylaxis All patient's questions were answered, they demonstrates understanding and are in agreement with the plan. Call our office if any questions or concerns arise. Discharge Plan Discharge Plan Patient Disposition: Home Discharge orders & Medications Prescriptions: New acetaminophen 325 mg Tablet 650 mg PO Q6H Qty: 90 0RF aspirin 81 mg Tablet,Delayed Release (Dr/Ec) 81 mg PO BID Qty: 90 0RF docusate sodium 100 mg Capsule 100 mg PO BID Qty: 30 0RF ibuprofen 600 mg Tablet 600 mg PO Q6H Qty: 60 0RF ondansetron 4 mg Tablet,Disintegrating 4 mg PO Q4HR PRN (Reason: Nausea And Vomiting) Qty: 7 0RF oxycodone 5 mg Tablet 5 mg PO Q4-6H PRN (Reason: Pain, Severe (7-10)) Qty: 30 0RF Continued cholecalciferol (vitamin D3) 250 mcg (10,000 unit) capsule 250 mcg PO DAILY letrozole 2.5 mg tablet 2.5 mg PO DAILY Qty: 90 3RF multivitamin Capsule 1 cap PO DAILY Discontinued ibuprofen 200 mg Tablet 400 mg PO BID Follow up/Referrals: Anoop Sears MD [Physician] - 09/25/24 3:00 pm (Follow up w/ Gail Olsen PA-C, at [employer] office in [place].) Aggie Beauchamp DO [Primary Care Provider] - Diet/Activity/Treatments Diet: Diet as Tolerated Activity: Weightbearing as tolerated. Walk frequently! Cold/Heat Therapy: Ice to knee as needed for pain. Skin/Wound/Dressing Care Report to your healthcare provider any signs of infection, such as:: chills, fever, night sweats, unusual drainage and unusual redness Dressing: May remove GERI wrap and cotton padding and shower on 09/16/2024. Leave Aquacel dressing in place until follow up in office. No bathing or otherwise soaking incision. Call the office if the dressing becomes saturated inside. Visit Report/Discharge Packet Instructions: DI for Knee Replacement, DI for Prescription Opioid Use Stand Alone Forms: Patient Portal/API, Surgery Discharge Discharge Data Primary Care Provider: Aggie Beauchamp
--- NOTE | 2024-09-15 11:30 | PC.NURSE ---
Pt is dressed and ready for discharge home with Sister. IV has been removed. Went over d/c instructions with Pt-discussed d/c meds, time of last dose, reviewed stroke education, s/s of infection, showering, and her Aquacell dsg. Reminded Pt to not take more than 3000mg of Acetaminophen in 24 hours and to stick with the recommended dose of Ibuprofen. Pt denied further questions and was taken out via w/c by COMPLIANCE AND CONTROL ANALYST to POV with Sister and all belongings.
--- NOTE | 2024-09-15 12:56 | CM.DANOTE ---
Initial DCP Assessment Visit Note Reviewed EMR and team rounds for pt's medical status and updates. This RECORDS TECH was unable to meet with pt f/f due to unit triage needs at the time of this assessment. Pt lives independently in her own home with her spouse in [place]. Her spouse will transport her home this afternoon. Pt denies any CM d/c assistance needs at this time. Payor: Medicare Attending: Dr. Sears Pt is a 68 year-old F post-op day 1 from a R-total knee arthroplasty surgery. She is doing well postoperatively, pain is well managed, and pt is expressing readiness to return home. Pt has a hx of worsening R-knee pain over the last 2-years, and it's now significantly impacting her ability to exercise and do her ADL's. Pt has all necessary home DME for her home recovery needs, and her spouse will be providing for her care. No further d/c needs identified at this time. Discharge Planning/Care Management CM Discharge Assessment Start: 09/15/24 12:54 Freq: Status: Discharge Protocol: Document 09/15/24 12:54 DPL (Rec: 09/15/24 12:56 DPL [id number]) Discharge Planning Assessment Assigned Drug Safety Coordinator BRENT Michelle Advance Directives? No History Provided By Medical Record Expected Length of Stay 1 Has Patient been admitted in last 30 No days? Prior Living Arrangements House Household Members spouse,none Type of transporation used prior to Drives own vehicle admit Independent with ADL's Yes Is patient alert and oriented? Yes Caregiver for Another No DME Already Rented / Owned Elevated Toilet Seat,FWW / Walker,Cane Comment adjustable bed Patient/Family Preference OP PT Therapy Barriers to Discharge No Discharge Plan Home Community Services Physical Therapy Transportation Arrangement Spouse Referrals Initiated None needed Review Status In Process Please Provide Date Initial DC 09/15/24 Assessment Was Performed Pre-Anesthesia Assessment Start: 09/03/24 13:01 Freq: Status: Discharge Protocol: Document 09/03/24 13:01 LB (Rec: 09/03/24 13:27 LB [id number]) Pre-Anesthesia Assessment PAC Comment 09/03/24 Phone assessment. Patient Information Reviewed Via Phone Assessment Assessment Completed With Patient Diagnostic Results BMP/CMP,CBC Comment 07/01/24 at . Primary Care Provider Ana María Browning Specialist Seen Orthopedist Primary Language Divehi Preferred Language Divehi Household Assistant Required No Height 172.72 cm Weight 94.347 kg Body Mass Index (BMI) 31.6 Hearing Ability Normal Visual Assist Contacts Dentition Type Teeth, Natural Present,Dental Implants Barriers to Learning None Other Aids No Hx Anesthesia Reactions Yes: PONV with spinal. Hx Family Anesthesia Reaction No Hx Malignant Hyperthermia No Hx Blood Transfusions No Anesthesia Review Requested No Dental Instructor No alcohol intake current alcohol intake frequency a few times a week Smoking Status Never smoker Substance Use Type [#R] does not use Pain Present Pain Reported Comment Right knee. Musculoskeletal Symptoms Abnormal Gait,Joint Pain History of Falling (Recent or History of Yes ) Comment 1-2 times per year - trips. Patient is completely paralyzed or No completely immobile Mental Status Oriented to own ability Comment Will bring walker. Is patient on oxygen? No Does patient have SAINI/SOB No Hx Sleep Apnea No Currently Taking a Beta Jason No Can You Climb a Flight of Stairs Without Yes SOB Hx Chest Pain No Hx SOB No Hx Syncope or Dizziness No Anti-Coagulant Therapy No Has a Jig Maker No Cardiac Testing No Hx Pacemaker/ICD No Dysphagia No Gastrointestinal Symptoms None Bladder Pattern Nocturia Urinary Catheter Present No Hx Urinary Self Catheterization No Diabetes No Patient No Lactating No Hx Drug Resistant Organism No Presence of External or Internal Medical Yes: Bilateral knees. Devices Have you had any close contact with No someone diagnosed with COVID-19? Are you experiencing any of these Abdominal Pain symptoms? Comment Denies covid last 8 weeks. Marital Status Single Lives With none Current Living Arrangements House Number of Stairs To Enter/Railing? One stair. Support System Sibling(s) Does the Patient Have Assistance After Yes Surgery Patient Discharge Plan Description Return Home Additional comment Advised same day surgery. Feels Safe in Current Environment Yes Do you have a plan to hurt yourself or No Plan others? Do You Have Any Spiritual Beliefs That No May Affect Your HC Choices? Do You Have Any Cultural Practices That No May Affect Your HC Choices? Emergency Contact Name Christina Smith - sister Emergency Contact Advance Directives? No PAC Instructions Assistance for 24 hours post- op,Do not shave/clip surgical site,Durable medical equipment ,Medications to take/avoid,No ETOH/petroleum product on skin DOS,NPO,Post-op transportation,Pre-surgical wash,Sturdy shoes/comfortable clothes,Do not bring valuables and remove jewelry
== END 2024-09-15 11:33 | disposition home or self-care (01) | DRG 489 ==
PROVIDERS: Admitting Provider Orthopaedic Surgery Adult Reconstructive Orthopaedic Surgery; PCP Family Medicine; Referring Provider Orthopaedic Surgery Adult Reconstructive Orthopaedic Surgery; Visit Provider Orthopaedic Surgery Adult Reconstructive Orthopaedic Surgery
PROC: 0SPC09Z Removal of Liner from Right Knee Joint, Open Approach (ICD-10-PCS; principal; 2024-09-14 10:45)
DX: T84.022A Instability of internal right knee prosthesis, initial encounter (principal); M21.061 Valgus deformity, not elsewhere classified, right knee; M21.161 Varus deformity, not elsewhere classified, right knee; R00.1 Bradycardia, unspecified; Y79.2 Prosthetic and other implants, materials and accessory orthopedic devices associated with adverse incidents; Z85.3 Personal history of malignant neoplasm of breast
CPT/HCPCS: 36415; 73560; 85014; 85018; 87070; 87075; 87205; 97116; 97161; C1776; J0330; J0690; J2405; J2704; J3010

== ENCOUNTER → 2024-11-12 08:22 | Outpatient (CLI) | payer MEDICARE, OTHER, SELFPAY ==
[2024-09-14 13:58] VITALS: BMI 31.1
--- NOTE | 2024-11-12 08:23 | DI.MG.S_ITS ---
MM screening mammo BI: 11/12/2024. BI-RADS: 2 CLINICAL: 68-year old female for bilateral screening mammogram. No Tyrer-Cuzick risk score calculation due to the patient's personal history of breast cancer. Patient reports a history of right breast carcinoma diagnosed at age 64. Status-post right lumpectomy with radiation therapy and hormonal therapy. Current reported family history of breast cancer: sister. Patient was diagnosed within the last 5 years. The patient had a prior right breast biopsy. PRIOR EXAMS 10/16/2023, 07/12/2022, 06/13/2021, 08/04/2020, 05/26/2020, 05/17/2020. MAMMOGRAPHY TECHNIQUE: 2D and 3D (tomosynthesis) digital mammographic views obtained, with additional images as needed for full coverage. Current study was also evaluated with a Computer Aided Detection (CAD) system. DENSITY C. The breasts are heterogeneously dense, which may obscure small masses. MAMMOGRAPHY FINDINGS Right: Benign-appearing post-surgical changes noted on the right. There are no suspicious masses, calcifications, or other findings in the breast. Left: No suspicious mass, asymmetry, microcalcification, or other abnormality seen. IMPRESSION: Right * No evidence of malignancy with benign findings. Left * No evidence of malignancy. RECOMMENDATIONS Bilateral * Annual screening mammography. OVERALL ASSESSMENT CATEGORY BI-RADS-2: Benign. The [employer] recommends annual screening mammography beginning at age 40 for women with average risk of breast cancer. ELECTRONICALLY SIGNED: Hannah Coronado M.D. on 11/14/2024 at 09:28:01 AM PT Interpreting Station ID: [id number]
== END ==
PROVIDERS: PCP Family Medicine; Referring Provider Family Medicine; Visit Provider Family Medicine
DX: Z12.31 Encounter for screening mammogram for malignant neoplasm of breast (principal); C50.911 Malignant neoplasm of unspecified site of right female breast; Z80.3 Family history of malignant neoplasm of breast; R92.333 Mammographic heterogeneous density, bilateral breasts
CPT/HCPCS: 77063; 77067

== ENCOUNTER → 2025-01-06 10:08 | Outpatient (CLI) | payer MEDICARE, OTHER, SELFPAY ==
[2024-09-14 13:58] VITALS: BMI 31.1
--- NOTE | 2025-01-06 10:10 | DI.RAD.S_ITS ---
PROCEDURE: XR HIP W PEL IF DONE BILAT 2V INDICATIONS: worsening bilateral hip pain TECHNIQUE: Three views of the hip were acquired. COMPARISON: None. FINDINGS: Bones: There are no osseous abnormalities. SI and hip joints: Mild degeneration both hip SI and hip joints. Moderate L4-5 and L5-S1 degenerative disc and facet disease Soft tissues: No soft tissue swelling, calcification or mass. IMPRESSION: Degeneration Dictated by: Beni Rivers M.D. on 01/07/2025 at 11:55 Approved by: Beni Rivers M.D. on 01/07/2025 at 11:56
== END ==
PROVIDERS: PCP Family Medicine; Referring Provider Family Medicine; Visit Provider Family Medicine
DX: M16.0 Bilateral primary osteoarthritis of hip (principal); M51.369 Other intervertebral disc degeneration, lumbar region without mention of lumbar back pain or lower extremity pain; M51.379 Other intervertebral disc degeneration, lumbosacral region without mention of lumbar back pain or lower extremity pain; M47.816 Spondylosis without myelopathy or radiculopathy, lumbar region; M47.817 Spondylosis without myelopathy or radiculopathy, lumbosacral region; M47.818 Spondylosis without myelopathy or radiculopathy, sacral and sacrococcygeal region; M25.551 Pain in right hip; M25.552 Pain in left hip; Z96.653 Presence of artificial knee joint, bilateral
CPT/HCPCS: 73521